=== PATIENT | female | born 1930 | race Caucasian/White ===

== ENCOUNTER 2019-04-19 13:39 | Inpatient (IN) | payer OTHER, MEDICARE ==
[~2019-04-19] VITALS: Ht 152.4 cm; Wt 73.5 kg
[2019-04-19] VITALS (7 sets, daily range): BP systolic 102–147; BP diastolic 56–86
[2019-04-19 14:16] LABS: BASOPHILS 0.7 % (0.0-2.0); EOSINOPHILS 1.5 % (0.0-3.0); HEMATOCRIT 41.4 % (37.0-47.0); HEMOGLOBIN 14.3 gm/dL (12.0-15.0); LYMPHOCYTES 21.1 % (24.0-44.0); MCH 35.3 pg (26.0-34.0); MCHC 34.5 g/dL (28.0-37.0); MCV 102.3 fL (80.0-100.0); MONOCYTES 8.9 % (1.0-8.0); PLATELET COUNT 190 thou/uL (150-400); POLYS 67.8 % (36.0-66.0); RBC 4.04 mil/uL (4.20-5.00); RDW 13.4 % (10.5-14.5); WBC 8.9 thou/uL (4.0-11.0)
[2019-04-19] MEDS ORDERED: METFORMIN HCL500 MG PO (14:17)
[2019-04-19 14:27] LABS: ANION GAP 14 mmol/L (7-16); BUN 13 mg/dL (7-18); CALCIUM 9.3 mg/dL (8.5-10.1); CHLORIDE 105 mmol/L (98-107); CO2 21 mmol/L (21-32); CREATININE 1.3 mg/dL (0.6-1.0); GLUCOSE 179 mg/dL (74-106); POTASSIUM 3.9 mmol/L (3.5-5.1); SODIUM 140 mmol/L (136-145)
[2019-04-19 14:37] LABS: MAGNESIUM 1.8 mg/dL (1.8-2.4); SGOT 21 U/L (15-37); SGPT 10 U/L (30-65); TOTAL BILIRUBIN 0.5 mg/dL (<0.1-1.0); TOTAL PROTEIN 7.1 g/dL (6.4-8.2); TROPONIN-I <0.06 ng/mL (<0.06)
[2019-04-19] MEDS ORDERED: ZOCOR20 MG PO (14:46)
[2019-04-19] MEDS ORDERED: AMARYL4 MG PO (14:49)
[2019-04-19] MEDS ORDERED: AMARYL2 MG PO (14:51)
[2019-04-19 17:37] LABS: CHOLESTEROL 225 mg/dL (<200); HDL CHOLESTEROL 33 mg/dL (>40); LDL CHOLESTEROL 144 mg/dL (<100); TC:HDL 6.8 Ratio (Not establshd); TRIGLYCERIDE 243 mg/dL (<150); VLDL 49 mg/dL (<40)
[2019-04-19 17:39] LABS: SERUM ASSESSMENT Clear
--- NOTE | 2019-04-19 18:40 | NUR ---
Recieved pt from ED. Placed on ICU monitor, oriented to room. VSS. Bilateral rales noted. On 2L nasal cannula. Heparin gtt started. Report given to oncoming shift.
[2019-04-20] VITALS (8 sets, daily range): BP systolic 90–114; BP diastolic 53–86
--- NOTE | 2019-04-20 03:00 | NUR ---
PT ARRIVED IN ICU FROM ER AT 1840 YESTERDAY EVENING. PT A&O, BUT FORGETFUL. PT DID BECOME INCREASINGLY ANXIOUS OVERNIGHT; PT IS NOT USE TO BEING IN THE HOSPITAL AND SAID SHE FELT "ANTSY". ORDER FOR HYDROXYZINE OBTAINED FROM [employer] THIS MORNING. PT HAS BEEN SLEEPING SINCE HYDROXYZINE WAS GIVEN. PT IS EASILY AROUSABLE AND HAS BEEN WOKEN INTERMITTENTLY, BUT IS CALM AND FALLS BACK ASLEEP SHORTLY AFTER. PT ON HEPARIN GTT. APTT NOT IN THERAPEUTIC RANGE YET, NEXT APTT TO BE DRAWN AT 0700 THIS MORNING. PT ON O2 PER NC, AND ONLY HAS SOA WHEN ANXIOUS. PT IS PROGRESSING. WILL CONTINUE TO MONITOR.
[2019-04-20 06:11] LABS: GLYCOHEMOGLOBIN (HGB A1C) 6.6 % (4.8-5.6)
[2019-04-20 07:06] LABS: CALCIUM 9.2 mg/dL (8.5-10.1); CREATININE 1.2 mg/dL (0.6-1.0); POTASSIUM 3.7 mmol/L (3.5-5.1)
[2019-04-20 07:08] LABS: HEMATOCRIT 40.3 % (37.0-47.0); HEMOGLOBIN 13.7 gm/dL (12.0-15.0); MCHC 33.9 g/dL (28.0-37.0); MCV 103.3 fL (80.0-100.0); RBC 3.9 mil/uL (4.20-5.00); RDW 13.5 % (10.5-14.5); WBC 10.1 thou/uL (4.0-11.0)
--- NOTE | 2019-04-20 07:40 | NUR ---
PATIENT LAB VALUES RETURNED. NO CHANGE ORDERED FOR HEPARIN GTT.
--- NOTE | 2019-04-20 08:34 | EKG ---
[address] [address] ELECTROCARDIOGRAM REPORT Name: SAGAR KATZ Room #: 245-P ADM IN M.R.#: [id number] Admission: 04/19/19 Attend Phys: Veronica De La Cruz MD Discharge: Date of : [birth year] Report #: [id number] THIS REPORT FOR: //name// [facility] ED Test Date: 2019-04-19 Test Time: 13:43:47 Pat Name: SAGAR KATZ Department: Room: [facility] Gender: F Construction Project Assistant: JOSÉ : [id number] Requested By: Mook Hoang Order Number: [id number] MD: Scar Osborne Measurements Intervals [place] Rate: 91 P: 43 CO: 149 QRS: -27 QRSD: 104 T: -63 QT: 382 QTc: 471 Interpretive Statements Sinus rhythm Inferior infarct, age indeterminate Anterolateral infarct, age indeterminate No previous ECG available for comparison Electronically Signed On 04-20-2019 8:34:13 CDT by Scar Osborne [email or web address] <ELECTRONICALLY SIGNED> By: Scar Osborne MD 04/20/19 0834 1343 134 Scar Osborne MD /BARBIE
--- NOTE | 2019-04-20 10:27 | 2DMMODE ---
[facility] [address] [place] [address] 2 D/M-MODE ECHOCARDIOGRAM Name: STERLINGSAGAR ALONZO Room #: 245-P ADM IN ..#: [id number] Admission: 04/19/19 Attend Phys: Veronica De La Cruz MD Discharge: Date of : [birth year] Date of Service: 04/20/19 1027 Report #: [id number] THIS REPORT FOR: //name// APPROVED REPORT Study performed: 04/20/2019 08:32:41 EXAM: Comprehensive 2D, Doppler, and color-flow Echocardiogram Patient Location: In-Patient Room #: [facility] Status: routine BSA: 1.76 HR: 68 bpm BP: 110/58 mmHg Rhythm: NSR Other Information Study Quality: Poor Indications New onset CHF. Hx; DM, HTN, DVT, PE 2D Dimensions RVDd: 34.81 mm IVSd: 12.21 (7-11mm) LVOT Diam: 18.98 (18-24mm) LVDd: 37.34 mm PWd: 11.62 (7-11mm) Ascending Ao: 37.24 (22-36mm) LVDs: 30.60 (25-40mm) Aortic Root: 32.56 mm Volumes Left Atrial Volume (Systole) Single Plane 4CH: 45.88 mL Single Plane 2CH: 18.84 mL LA ESV Index: 18.00 mL/m2 Aortic Valve AoV Peak Isauro.: 1.45 m/s AO Peak Gr.: 8.39 mmHg LVOT Max P.12 mmHg LVOT Max V: 1.02 m/s ELICIA Vmax: 1.98 cm2 Mitral Valve E/A Ratio: 0.7 MV Decel. Time: 399.49 ms MV E Max Isauro.: 0.59 m/s [facility] [address] [place] [address] 2 D/M-MODE ECHOCARDIOGRAM Name: STERLINGSAGARMerritt ALONZO Room #: [address] [place] [address] IN ..#: [id number] Admission: 04/19/19 Attend Phys: Veronica De La Cruz MD Discharge: Date of : [birth year] Date of Service: 04/20/19 1027 Report #: [id number] MV A Isauro.: 0.89 m/s MV PHT: 115.85 ms IVRT: 101.50 ms Pulmonary Valve PV Peak Isauro.: 1.05 m/s PV Peak Gr.: 4.39 mmHg Pulmonary Vein P Vein S: 0.48 m/s P Vein D: 0.29 m/s P Vein S/D Ratio: 1.66 Tricuspid Valve TR Peak Isauro.: 3.88 m/s RAP Estimate: 5.00 mmHg TR Peak Gr.: 60.18 mmHg PA Pressure: 65.00 mmHg Left Ventricle The left ventricle is normal size. Mild concentric left ventricular hypertrophy. The left ventricular systolic function is normal. The left ventricular ejection fraction is within the normal range. LVEF is 60%. Mild diastolic dysfunction is present (impaired relaxation pattern). Right Ventricle The right ventricle is normal size. Right ventricle is mildly hypokinetic. Atria The left atrium size is normal. The right atrium size is normal. Aortic Valve Aortic valve is thickened but has adequate excursion. Trace aortic regurgitation. There is no aortic valvular stenosis. Mitral Valve The mitral valve is normal in structure. Trace mitral regurgitation. No evidence of mitral valve stenosis. Tricuspid Valve The tricuspid valve is normal in structure. Moderate tricuspid regurgitation. Estimated PAP is 60mmHg. Pulmonic Valve The pulmonary valve is normal in structure. Trace pulmonic [facility] [address] [place] [address] 2 D/M-MODE ECHOCARDIOGRAM Name: SAGAR KATZ CLINTON Room #: 245-P [facility] IN ..#: [id number] Admission: 04/19/19 Attend Phys: Veronica De La Cruz MD Discharge: Date of : [birth year] Date of Service: 04/20/19 1027 Report #: [id number] regurgitation. Great Vessels The aortic root is normal in size. IVC is normal in size and collapses >50% with inspiration. Pericardium There is no pericardial effusion. <Conclusion> The left ventricle is normal size. LVEF is 60%. Aortic valve is thickened but has adequate excursion. Trace aortic regurgitation. The mitral valve is normal in structure. Trace mitral regurgitation. The tricuspid valve is normal in structure. Moderate tricuspid regurgitation. Estimated PAP is 60mmHg. The pulmonary valve is normal in structure. Trace pulmonic regurgitation. There is no pericardial effusion. <ELECTRONICALLY SIGNED> By: Felipe Hinds MD 04/20/19 1027 1027 1027 Felipe Hinds MD /INF
[2019-04-20 10:50] LABS: FOLIC ACID 40.4 ng/mL (8.6-58.9)
--- NOTE | 2019-04-20 17:01 | NUR ---
CM ASSESSMENT: CASE OPENED FOR DC PLANNING. CLINICAL INFO REVIEWED AND TALKED WITH PT'S DTR AD GRANDDAUGHTER. GRANDDAUGHTER IS ALEXIA LOU, SUPERVISOR [employer] [place] [address] [place] [address]. PT LIVES ALONE, INDEPENDENT WITH ADLS AND NO DME USE OR PREVIOUS HH OR REHAB STAYS. ALEXIA RELATES PT DOESN'T THINK SHE NEEDS TO BATHE REGULARLY AND HAS HOARDING TENDENCIES. STILL DRIVES, AND DOES HER OWN MEDS AND FINANCES. DISCUSSED MEDICAL AND FINANCIAL POA OR ATLEAST HAVING ANOTHER PERSON ON HER BANK ACCOUNT. FAMILY INTERESTED IN ACUTE REHAB AND 5N FOLLOWING IF PT WILL AGREE AND QUALIFIES. FAMILY AGREES PT NEEDS SOCIALIZATION AND PROVIDED RESOURCE FOR ADULT DAY CARE TO GRANDDAUGHTER. ADITS WITH DVT AND PE. PULM, CV AND GERIATRICS FOLLOWING. CM TO FOLLOW THRAPY EVALS AND ASSIST WITH DC PLANNING.
[2019-04-20 17:04] LABS: CALCIUM 9.5 mg/dL (8.5-10.1); CREATININE 1.4 mg/dL (0.6-1.0); POTASSIUM 3.7 mmol/L (3.5-5.1)
--- NOTE | 2019-04-20 19:02 | NUR ---
PATIENT TRANSFERRED TO CCU AT 18:25. MACKEY & LASIX DC'D PER ORDERS. PATIENT ABLE TO VOID 25ML POST DC OF MACKEY. PATIENT ABLE TO STAND AND SHUFFLE WITH 2 PERSON ASSIST FROM BED TO WHEELCHAIR, WHEELCHAIR TO COMMODE, AND THEN BACK TO BED. PATIENT CONTINUES TO DENY PAIN. REPORTS CRAMPING IN RLE ONETIME. FALL PRECAUTIONS IN PLACE, AGREES TO CALL FOR ASSIST. APTT IN RANGE, HEPARIN RATE DID NOT REQUIRE CHANGES THIS SHIFT. REPORT GIVEN TO MONA ROLAND AT 17:50.
[2019-04-21 03:20] VITALS: BP 114/62
--- NOTE | 2019-04-21 04:59 | NUR ---
PT RESTING IN BED. HAS NOT SLEPT SOUNDLY TONIGHT BUT MINI NAPS OFF AND ON. PT REMAINS ON HEPARIN GTT AND AWAITING AM RESULTS NOW. PT SR ON MONITOR. NO C/O PAIN THIS SHIFT. REMAINS ON 4L PER NC.
[2019-04-21 05:19] LABS: CALCIUM 9.4 mg/dL (8.5-10.1); CREATININE 1.3 mg/dL (0.6-1.0); POTASSIUM 3.6 mmol/L (3.5-5.1)
[2019-04-21 05:53] LABS: HEMATOCRIT 42.1 % (37.0-47.0); HEMOGLOBIN 14.5 gm/dL (12.0-15.0); MCHC 34.3 g/dL (28.0-37.0); MCV 102.1 fL (80.0-100.0); RBC 4.13 mil/uL (4.20-5.00); RDW 13.5 % (10.5-14.5); WBC 9.7 thou/uL (4.0-11.0)
[2019-04-21 07:10] VITALS: BP 101/57
[2019-04-21 11:20] VITALS: BP 104/51
--- NOTE | 2019-04-21 14:43 | HC ---
[facility] [place] [address] CONSULTATION Name: SAGAR KATZ Room #: 209-P ADM IN M.R.#: [id number] Admission: 04/19/19 Attend Phys: Veronica De La Cruz MD Discharge: Date of : [birth year] Report #: [id number] THIS REPORT FOR: //name// CC: Veronica Andujar MD PULMONARY CONSULTATION PRIMARY CARE PHYSICIAN: Dr. Bar Andujar. REFERRING PHYSICIAN: Dr. De La Cruz. REASON FOR REFERRAL: Pulmonary embolus. HISTORY OF PRESENT ILLNESS: The patient is an 89-year-old white female who presents to the ED with progressive dyspnea. She was found to have pulmonary embolus. A Pulmonary consultation was requested. The patient has been relatively healthy for most of her life. For the past few years, she has been rather sedentary. She sits down at prolonged periods of time, up to 2 hours at a time. She states that she does not exercise regularly. She admits that she is sedentary. Few days ago, while at [employer], she remembers being short of breath when she got up from her chair. Symptoms persisted and worsened over time where she presented to the Emergency Room. A CT chest angiogram and ultrasound shows DVT in the left popliteal vein along with bilateral moderate pulmonary embolus. Otherwise, the patient denies any recent long travel, car travel or airplane travel. She denies any recent surgery or trauma. She denies any family history of venothromboembolic disease. Several years ago, she underwent knee surgery without any difficulty postoperatively. PAST MEDICAL HISTORY: Includes diabetes mellitus type 2, hypertension, hypercholesterolemia. ALLERGIES: To CEPHALOSPORINS, reactions unspecified; CLINDAMYCIN, reaction unspecified; HALDOL; HYDROCODONE; HYDROMORPHONE; MORPHINE; OXYCODONE; PENICILLIN, reactions unspecified. FAMILY HISTORY: Unremarkable. [facility] [address] [place] [address] CONSULTATION Name: SAGAR KATZ Room #: 209-P [facility] IN [facility].#: [id number] Admission: 04/19/19 Attend Phys: Veronica De La Cruz MD Discharge: Date of : [birth year] Report #: [id number] SOCIAL HISTORY: She has family in town. I believe she is . She lives by herself. She has smoked for about 10 years, quit many years ago. She denies any alcohol use. REVIEW OF SYSTEMS: As mentioned above, other than being sedentary a 10-point system review negative. PHYSICAL EXAMINATION: GENERAL: She is awake, alert, in no apparent distress. VITAL SIGNS: Temperature is 98.6 degrees Fahrenheit, pulse is 80, respiratory rate is 20, blood pressure 111/61 mmHg, saturation 100% on supplemental O2. HEENT: Normocephalic, atraumatic. NECK: Supple, without lymphadenopathy or thyromegaly. CHEST: Good breath sounds bilaterally. No rales or wheezes. CARDIOVASCULAR: Normal S1, S2. There are no murmurs or gallop. There is no JVD. There is no carotid bruit. Pulses are 2+/4+ bilaterally. BREASTS: Exam is deferred. ABDOMEN: Soft, nontender, no organomegaly or masses felt. GENITOURINARY: Deferred. RECTAL: Deferred. EXTREMITIES: There is no edema, cyanosis or clubbing. LABORATORY DATA: CT chest angiogram, leg Doppler ultrasound reviewed. CT chest shows moderate bilateral, right and left, pulmonary artery thrombosis. No evidence of pulmonary infarction. Echocardiogram shows normal LV function, ejection fraction of 60%, pulmonary artery pressure measured approximately 60 mmHg. Otherwise, no other significant findings. BNP was 10,000. Creatinine is 1.3. CBC is normal. Hemoglobin is 14.3. IMPRESSION: 1. Acute bilateral pulmonary embolus, left deep venous thrombosis involving the popliteal vein in this 89-year-old white female. Her only risk factor, according to these, is felt to be provoked. The patient's only risk factor appears to be sedentary lifestyle over the last couple of years. She sits for prolonged periods up to 2 hours at a time. She was able to tolerate surgery several years ago, undergoing knee surgery. Echocardiogram shows elevated pulmonary artery pressures. Otherwise, no obvious evidence of RV strain. Troponin is normal. 2. Sedentary lifestyle, felt to be a risk factor for the above-mentioned venothromboembolism. 3. Hypertension. 4. Diabetes mellitus type 2. 5. Past knee surgery. RECOMMENDATION AND DISCUSSION: The patient will benefit from anticoagulation. Based on current recommendation for venothromboembolic disease, it is [address] [address] CONSULTATION Name: STERLINGSAGAR CLINTON Room #: 209-P ADM IN M.R.#: [id number] Admission: 04/19/19 Attend Phys: Veronica De La Cruz MD Discharge: Date of : [birth year] Report #: [id number] recommended that the patient be treated at least for 3 months and reassessed. If risk factor persists, the patient may benefit from ongoing anticoagulation. This will have to be weighed with the risk for bleeding complications given her advanced age. In terms of long-term anticoagulation, any direct oral anticoagulant is adequate including Coumadin depending on insurance coverage. As far as activity, the patient can start to slowly increase activity as tolerated depending on her symptoms. Findings were discussed in detail with the patient and her family, including her daughter who is a nurse at [facility]. Thank you for this consultation. <ELECTRONICALLY SIGNED> By: Dominik Woodson MD 04/21/19 1443 1241 0049 Dominik Woodson MD /nt
[2019-04-21 15:30] VITALS: BP 94/57
--- NOTE | 2019-04-21 17:10 | NUR ---
PT CARE ASSUMED APPROX 0700. PT ALERT AND ORIENTED X4. DENIES PAIN AND SOA AT REST. VSS. BS ELEVATED AT LUNCH. SSI USED TO MANAGE HYPERGLYCEMIA. HEPARIN GTT REMAINS TO POC. NO TITRATION REQUIRED THIS SHIFT PER PROTOCOL. PT UP WITH MIN ASSIST. PT SOA WITH MINIMAL EXERTION. ALL DRs ARE AWARE. PT FAMILY AT BEDSIDE MOST OF SHIFT. CLINICAL UPDATES GIVEN INTERMITTENTLY. PT AND FAMILY BOTH DENY QUESTIONS OR CONCERS REGARDING POC. YEAST NOTED IN GROIN. NYSTATIN APPLIED ORDERED. INTERDRY ALSO APPLIED TO MANAGE MOISTURE. PT HAS GOOD APPETITE. UNABLE TO TITRATE O2 DOWN THIS SHIFT. HUMIDIFIER TO O2 PER RESP THERAPY. UA TO BE COLLECTED. ANTICOAG THERAPY TO CHANGE TONIGHT. NO SIGNIFICANT CLINICAL CHANGES NOTED.
--- NOTE | 2019-04-21 17:11 | NUR ---
PER [facility], MEDICALLY ACCEPTED AND BED AVAILABLE THIS WEEKEND FOR PT. PT, DTR AND GRANDDAUGHTER AGREEABLE TO THIS PLAN.
[2019-04-21 21:44] VITALS: BP 109/71
[2019-04-21 23:42] LABS: URINE BILIRUBIN NEGATIVE (Negative); URINE BLOOD 1+ (Negative); URINE CLARITY CLEAR; URINE COLOR YELLOW; URINE GLUCOSE-RANDOM* NEGATIVE (Negative); URINE KETONES NEGATIVE (Negative); URINE LEUKOCYTES-REFLEX TRACE (Negative); URINE NITRITE-REFLEX NEGATIVE (Negative); URINE PROTEIN (DIPSTICK) NEGATIVE (Negative); URINE SPECIFIC GRAVITY <= 1.005 (1.005-1.035)
[2019-04-21 23:50] LABS: BACTERIA-REFLEX None Seen /HPF (None Seen); CASTS None Seen /LPF (None Seen); CRYSTALS None Seen /LPF (None Seen); MUCUS 0-3 Light strn/LPF (None Seen); SQUAMOUS 0-3 Few /LPF (0-3); URINE RBC 0-2 Rare /HPF (0-2); URINE WBC-REFLEX 0-5 Rare /HPF (0-5)
--- NOTE | 2019-04-22 04:56 | NUR ---
PT RESTING IN BED. SR ON MONITOR. PT REMAINS ON 4L NC. PT STILL CRACKLES HEARD THROUGHOUT. PT AMBULATED TO BATHROOM WITHOUT MUCH DIFFICULTY STANDBY WITH WALKER. PT OFF HEPARIN GTT TONIGHT AFTER STARTING PO ELIQUIS DOSE PER ORDERS. NO C/O PAIN DURING SHIFT.
[2019-04-22 05:48] LABS: CALCIUM 9.4 mg/dL (8.5-10.1); CREATININE 1.3 mg/dL (0.6-1.0); POTASSIUM 3.7 mmol/L (3.5-5.1)
[2019-04-22 06:15] VITALS: BP 123/68
[2019-04-22 08:15] VITALS: BP 110/55
[2019-04-22 12:20] VITALS: BP 141/69
[2019-04-22 16:20] VITALS: BP 101/62
--- NOTE | 2019-04-22 16:42 | NUR ---
PT CARE ASSUMED APPROX 0700. PT ALERT AND ORIENTED X4. DENIES PAIN. REPORTS SOA WITH EXERTION. PT DESATS WITH MOBILITY. RECOVERS QUICKLY WITH DEEP BREATHING ENCOURAGEMENT. VSS. BS SLIGHTLY ELEVATED. SSI USED TO MANAGE AND PT'S NORMAL ANTIHYPERGLYCEMIC ROUTINE TO BE RESUMED THIS EVENING. PT UP WITH WALKER AND MIN ASSIST. STEADY BUT EASILY EXERTED. UNABLE TO TITRATE O2 THIS SHIFT FOR SAID REASONS. PT PANUS AND PATTY GROIN REQUIRING SCHEDULED NYSTATIN CREAM. AREAS VERY MOIST AND THIS NURSE WILL RECOMMEND NYSTATIN POWDER BE ADDED TO POC. INTERDRY IN PLACE. HYDROCORTISONE ADDED TO POC FOR RASHED TO LOWER BACK THAT FAMILY REPORT ECZEMA. WILL MONITOR SKIN FOR IMPROVEMENT. AMBULATING IN HALLWAYS TOLERATETD. DISCHARGE TO REHAB HELD THIS DAY. IV LASIX SEEMS TO HAVE IMPROVED LUNG SOUNDS. CLINICALLY PT APPEARS THE SAME. UOP IMPROVED THIS SHIFT. FAMILY GIVEN CLINICAL UPDATES AND DENY QUESTIONS OR CONCERNS AT THIS TIME. NO DISTRESS NOTED.
[2019-04-22 20:02] VITALS: BP 106/57
[2019-04-23 05:34] LABS: CALCIUM 10.1 mg/dL (8.5-10.1); CREATININE 1.3 mg/dL (0.6-1.0); POTASSIUM 3.6 mmol/L (3.5-5.1)
[2019-04-23 05:41] VITALS: BP 104/57
--- NOTE | 2019-04-23 06:22 | NUR ---
PT IN BED SLEEP INTERRUPTED. PT SR ON MONITOR. 4L NC BUT STILL HAS DIFFICULT TIME RECOVERING AFTER ABMULATING TO BATHROOM WITH WALKER. PANUS REMAINS IRRITATED WITH YEAST AND PLACING NYSTATIN CREAM BUT PT DOES C/O DISCOMFORT IN THAT AREA.
[2019-04-23 07:55] VITALS: BP 133/69
[2019-04-23 11:15] VITALS: BP 91/57
[2019-04-23] MEDS ORDERED: ELIQUIS5 MG PO (12:26)
--- NOTE | 2019-04-23 13:10 | NUR ---
ACUTE REHAB ADMISSION WAS PLANNED FOR THIS DATE, BUT DELAYED BY PULMONARY PHYSICIAN WHO PLANS TO PERFORM MORE TESTING. PATIENT WILL NOT BE READY FOR DISCHARGE FROM ACUTE HOSPITAL UNTIL MIDWEEK. PATIENT WILL NEED TO BE REASSESSED TO SEE IF PATIENT WOULD STILL QUALIFY FOR ACUTE REHAB WHEN MEDICALLY STABLE. PATIENT IS PROGRESSING FUNCTIONALLY AND MY BE TOO HIGH FUNCTIONING TO BE A REHAB CANDIDATE AT THAT TIME.
[2019-04-23 15:25] VITALS: BP 129/61; BP 29/61
--- NOTE | 2019-04-23 16:14 | NUR ---
PT CARE ASSUMED APPROX 0700. PT ALERT AND ORIENTED X4 WITH FORGETFULNESS NOTED. DENIES PAIN. REPORTS SOA WITH EXERTION. REQUIRING 6LNC WHEN MOBILIZING AND DYSPNEA IS SIGNIFICANT. DR OROPEZA POSTPONED TRANSFER TO REHAB UNIT. FAMILY AWARE AND GIVEN ALL CLINICAL UPDATES. NO QUESTIONS AT THIS TIME. PT UP TO CHAIR MOST OF DAY. AMBULATING TO BATHROOM AND HALLWAYS WITH WALKER AND SBA. NO CHANGES TO POC. NO DISTRESS NOTED.
[2019-04-23 19:50] VITALS: BP 107/56
--- NOTE | 2019-04-24 01:17 | NUR ---
PT AMBULATING TO BATHROOM WITH WALKER AND STANDBY ASSIST AND IS TOLERATING FAIR. LAP TAKEN AROUND UNIT THIS SHIFT. DENIES PAIN. PLAN IS FOR TRANSFER TO 5N REHAB. PT HAVING TROUBLE SLEEPING THIS PM AND STATED SHE DOES NOT WANT TO BE HERE--JUST WANTS TO GO HOME. WILL PASS THIS ALONG. CALL LIGHT WITHIN REACH. WILL CONTINUE TO PROVIDE FREQUENT OBSERVATION.
[2019-04-24 04:25] LABS: CALCIUM 9.8 mg/dL (8.5-10.1); CREATININE 1.3 mg/dL (0.6-1.0); POTASSIUM 3.8 mmol/L (3.5-5.1)
[2019-04-24 04:35] LABS: HEMATOCRIT 37.8 % (37.0-47.0); HEMOGLOBIN 12.9 gm/dL (12.0-15.0); MCH 35.2 pg (26.0-34.0); MCHC 34.3 g/dL (28.0-37.0); MCV 102.9 fL (80.0-100.0); RBC 3.67 mil/uL (4.20-5.00); RDW 13.4 % (10.5-14.5); WBC 9.5 thou/uL (4.0-11.0)
[2019-04-24 05:01] VITALS: BP 129/74
[2019-04-24 08:29] VITALS: BP 127/56
[2019-04-24 12:09] VITALS: BP 114/52
[2019-04-24 16:52] VITALS: BP 107/54
--- NOTE | 2019-04-24 17:07 | NUR ---
PT CARE ASSUMED APPROX 0700. PT ALERT AND ORIENTED X4. DENIES PAIN AND SOA. VSS. COOPERATED WITH TURNS TWICE BUT SOON AFTER WENT BACK TO [facility]. BATH GIVEN BY TRAFFIC OPERATIONS MANAGER. PT TOLERATING POC. DENIES QUESTIONS OR CONCERNS. REPORTS CHRONIC GEN PAIN 7-04/01. ALSO REPORTS ADEQUATE PAIN MANAGEMENT. NO DISTRESS NOTED.
--- NOTE | 2019-04-24 17:09 | NUR ---
PT CARE ASSUMED APPROX 0700. PT ALERT AND ORIENTED X4. DENIES PAIN AND SOA. VSS. O2 SAT CONTINUES TO DROP WITH ACTIVITY. PT RECOVERS WELL AFTERWARDS AND HAS TOLERATED O2 WEANING. UP WITH WALKER AND STEADY GAIT. PT IS SBA. PT IN CHAIR MOST OF SHIFT. TOLERATING POC. NO CHANGES TO POC. FAMILY AT BEDSIDE THIS SHIFT AND DENIES QUESTIONS OR CONCERNS REGARDING POC. NO DISTRESS NOTED.
[2019-04-24 20:11] VITALS: BP 140/82
--- NOTE | 2019-04-25 04:34 | NUR ---
PT HAS BEEN UNABLE TO REST WELL TONIGHT. HAS BEEN ANXIOUS AND SAYS SHE JUST FEELS "ANTSY" AT TIMES. PT REMAINS ON 2L NC. DOES NOT C/O SOB DURING AMBULATION TO BATHROOM WITH WALKER AND BACK. PT AWAITING D/C TO REHAB TO REGAIN STRENGTH LOST. PT TO HAVE ECHO STILL. FREQUENT TRIPS TO THE BATHROOM, I BELIEVE 7-8 ALREADY TONIGHT.
[2019-04-25 04:47] VITALS: BP 111/49
[2019-04-25 07:45] VITALS: BP 131/71
[2019-04-25 12:05] VITALS: BP 119/85
--- NOTE | 2019-04-25 12:38 | 2DMMODE ---
[facility] [address] [place] [address] 2 D/M-MODE ECHOCARDIOGRAM Name: STERLINGSAGAR CLINTON Room #: 209-P ADM IN .R.#: [id number] Admission: 04/19/19 Attend Phys: Veronica De La Cruz MD Discharge: Date of : [birth year] Date of Service: 04/25/19 1238 Report #: [id number] THIS REPORT FOR: //name// APPROVED REPORT Study performed: 04/25/2019 10:10:05 EXAM: Limited 2D, Doppler, and color-flow Echocardiogram Patient Location: Bedside Room #: 209 Status: routine BSA: 1.70 HR: 66 bpm BP: 131/71 mmHg Rhythm: NSR Other Information Study Quality: Adequate Risk Factors: Cardiac Risk Factors: DM, Hyperlipidemia Indications Congestive Heart Failure Pulmonary Embolism Persistent Dyspnea 2D Dimensions IVSd: 10.66 (7-11mm) LVDd: 39.34 mm PWd: 11.21 (7-11mm) LVDs: 29.24 (25-40mm) LV Single Plane 4CH: 58.68 % Aortic Valve AoV Peak Isauro.: 1.45 m/s AO Peak Gr.: 8.36 mmHg Tricuspid Valve TR Peak Isauro.: 3.25 m/s RAP Estimate: 7.00 mmHg TR Peak Gr.: 42.16 mmHg PA Pressure: 49.00 mmHg Left Ventricle The left ventricle is normal size. Borderline concentric left ventricular hypertrophy. The left ventricular systolic function is [facility] [address] [place] [address] 2 D/M-MODE ECHOCARDIOGRAM Name: SAGAR KATZ Room #: 209-P ADM IN M.R.#: [id number] Admission: 04/19/19 Attend Phys: Veronica De La Cruz MD Discharge: Date of : [birth year] Date of Service: 04/25/19 1238 Report #: [id number] normal. The left ventricular ejection fraction is within the normal range. LVEF is 55-60%. Right Ventricle The right ventricle is normal size. The right ventricular systolic function is normal. Atria The left atrium size is normal. The right atrium size is normal. Aortic Valve Aortic valve is thickened but has adequate excursion. Trace aortic regurgitation. Mitral Valve The mitral valve is normal in structure. There is no mitral valve regurgitation noted. Tricuspid Valve The tricuspid valve is normal in structure. Mild to moderate tricuspid regurgitation. Pulmonary artery pressure is 49 mmHg. Pulmonic Valve The pulmonary valve is normal in structure. There is no pulmonic valvular regurgitation. Great Vessels The aortic root is normal in size. IVC is normal in size and collapses >50% with inspiration. Pericardium There is no pericardial effusion. <Conclusion> The left ventricle is normal size. LVEF is 55-60%. Aortic valve is thickened but has adequate excursion. Trace aortic regurgitation. The mitral valve is normal in structure. There is no mitral valve regurgitation noted. The tricuspid valve is normal in structure. Mild to moderate tricuspid regurgitation. Pulmonary artery pressure is 49 mmHg. [facility] [address] [place] [address] 2 D/M-MODE ECHOCARDIOGRAM Name: STERLINGSAGARMerritt ALONZO Room #: 209-P ADM IN M.R.#: [id number] Admission: 04/19/19 Attend Phys: Veronica De La Cruz MD Discharge: Date of : [birth year] Date of Service: 04/25/19 1238 Report #: [id number] The pulmonary valve is normal in structure. There is no pericardial effusion. <ELECTRONICALLY SIGNED> By: Felipe Hinds MD 04/25/19 1238 1238 1238 Felipe Hinds MD /INF
--- NOTE | 2019-04-25 12:52 | NUR ---
FAXED REFERRAL TO [facility] SPOKE WITH REBECCA IN ADM SHE RECEIVED REFERRAL AND WILL REVIEW. DCP TO FOLLOW.
--- NOTE | 2019-04-25 15:49 | NUR ---
patient to dc to [facility] today is accepted to acute rehab. CM avail for completion of AD.
[2019-04-25 16:22] VITALS: BP 130/66
--- NOTE | 2019-04-25 16:28 | NUR ---
PT CARE ASSUMED APPROX 0700. PT ALERT AND ORIENTED X4. DENIES PAIN AND SOA. VSS. BS WNL. PT UP TO CHAIR MOST OF SHIFT. TOLERATING POC. AMBULATED WITH P/T. TOLERATED WELL. CLINICAL UPDATES GIVEN TO FAMILY. ALL DENY QUESTIONS AND CONCERNS. PLAN IS TO TRANSFER PT TO REHAB UNIT. ABD CT RESULTS ARE PENDING AND THEN DR CASTRO TO PUT IN ORDERS FOR TRANSFER TO REHAB. WILL F/U.
[2019-04-25] MEDS ORDERED: ATORVASTATIN CA10 MG PO (17:26)
[2019-04-25] MEDS ORDERED: TRAZODONE HCL50 MG PO (17:26)
[2019-04-25] MEDS ORDERED: NOVOLOG100 UNIT/1 SUBQ (17:27)
[2019-04-25] MEDS ORDERED: AMARYL2 MG PO (17:28)
[2019-04-25] MEDS ORDERED: B12INJ IM (17:29)
[2019-04-25] MEDS ORDERED: MELATONIN5 M1 PO (17:29)
[2019-04-25] MEDS ORDERED: FOLIC ACID1 MG PO (17:30)
[2019-04-25] MEDS ORDERED: GLUCAGEN1 MG/1 ML IM (17:30)
[2019-04-25] MEDS ORDERED: HYDROCORTISONE30 G9 TOP (17:31)
[2019-04-25] MEDS ORDERED: NYAMYC15 GM TOP (17:31)
--- NOTE | 2019-04-25 17:52 | NUR ---
ORDERS TO TRANSFER TO REHAB PUT IN AFTER ABD CT RESULTS REVIEWED BY DR CASTRO. WILL TRANSFER PT TO REHAB UNIT TIMELY. FAMILY AT BEDSIDE AND AWARE. REPORT CALLED TO RECEIVING NURSE. NURSE DENIES QUESTIONS OR CONCERNS REGARDING PT.
== END 2019-04-25 18:15 | DRG 175 ==
LOC: ER 13:39 → 2N 17:14 → EROBS 17:14 → ICU 17:14 → 2N 04-20 17:55
PROVIDERS: Emergency Medicine; Hospitalist; Internal Medicine Pulmonary Disease; Nurse Practitioner Family; ADMIT Internal Medicine
DX: I26.99 Other pulmonary embolism without acute cor pulmonale (principal); J96.01 Acute respiratory failure with hypoxia; I82.432 Acute embolism and thrombosis of left popliteal vein; I50.30 Unspecified diastolic (congestive) heart failure; N17.9 Acute kidney failure, unspecified; I13.0 Hypertensive heart and chronic kidney disease with heart failure and stage 1 through stage 4 chronic kidney disease, or unspecified chronic kidney disease; E78.5 Hyperlipidemia, unspecified; E78.00 Pure hypercholesterolemia, unspecified; M25.462 Effusion, left knee; L30.4 Erythema intertrigo; Z60.2 Problems related to living alone; Z96.653 Presence of artificial knee joint, bilateral; I08.8 Other rheumatic multiple valve diseases; F03.90 Unspecified dementia, unspecified severity, without behavioral disturbance, psychotic disturbance, mood disturbance, and anxiety; D53.9 Nutritional anemia, unspecified; I27.20 Pulmonary hypertension, unspecified; M19.90 Unspecified osteoarthritis, unspecified site; E53.8 Deficiency of other specified B group vitamins; K21.9 Gastro-esophageal reflux disease without esophagitis; N18.3 Chronic kidney disease, stage 3 (moderate); K46.9 Unspecified abdominal hernia without obstruction or gangrene; K43.9 Ventral hernia without obstruction or gangrene; E11.22 Type 2 diabetes mellitus with diabetic chronic kidney disease; Z79.84 Long term (current) use of oral hypoglycemic drugs; Z79.899 Other long term (current) drug therapy; Z88.8 Allergy status to other drugs, medicaments and biological substances; Z88.6 Allergy status to analgesic agent; Z88.0 Allergy status to penicillin; Z87.891 Personal history of nicotine dependence; Z82.3 Family history of stroke; Z83.79 Family history of other diseases of the digestive system
CPT/HCPCS: 10078; 10081; 10203

== ENCOUNTER 2019-04-22 09:41 | Inpatient (IN) | payer OTHER, MEDICARE ==
[~2019-04-22] VITALS: Ht 149.9 cm; Wt 77.1 kg
[~2019-04-22 09:41] MED LIST: AMARYL2 MG PO; AMARYL4 MG PO; METFORMIN HCL500 MG PO; ZOCOR20 MG PO
[2019-04-23] MEDS ORDERED: ELIQUIS5 MG PO (12:26)
[2019-04-25] MEDS ORDERED: ATORVASTATIN CA10 MG PO (17:26)
[2019-04-25] MEDS ORDERED: TRAZODONE HCL50 MG PO (17:26)
[2019-04-25] MEDS ORDERED: NOVOLOG100 UNIT/1 SUBQ (17:27)
[2019-04-25] MEDS ORDERED: AMARYL2 MG PO (17:28)
[2019-04-25] MEDS ORDERED: B12INJ IM (17:29)
[2019-04-25] MEDS ORDERED: MELATONIN5 M1 PO (17:29)
[2019-04-25] MEDS ORDERED: FOLIC ACID1 MG PO (17:30)
[2019-04-25] MEDS ORDERED: GLUCAGEN1 MG/1 ML IM (17:30)
[2019-04-25] MEDS ORDERED: NYAMYC15 GM TOP (17:31)
[2019-04-25] MEDS ORDERED: HYDROCORTISONE30 G9 TOP (17:31)
[2019-04-25 19:55] VITALS: BP 115/53
--- NOTE | 2019-04-26 02:31 | NUR ---
pt arrived to unit approx 1800. pts daughter with pt in room at change of shift. 02 at 2L per n/c. oriented pt to room, call light, etc. pt alert and oriented x4, somewhat forgetful, pleasant and cooperative. pt took hs meds with water tolerating well. pt up to the bathroom with 1 assist and walker several times in night. pt denies pain. cream and powder applied to back and abd folds as ordered. pt appears to be sleeping soundly with hourly rounding checks. bed alarm on and call light in reach. will continue to monitor.
[2019-04-26 06:57] LABS: HEMATOCRIT 38.1 % (37.0-47.0); MCH 34.8 pg (26.0-34.0); MCHC 34.1 g/dL (28.0-37.0); MCV 101.9 fL (80.0-100.0); RBC 3.74 mil/uL (4.20-5.00); RDW 13.4 % (10.5-14.5); WBC 8.8 thou/uL (4.0-11.0)
[2019-04-26 07:06] LABS: CALCIUM 10.1 mg/dL (8.5-10.1); CREATININE 1.2 mg/dL (0.6-1.0)
[2019-04-26 07:50] VITALS: BP 136/70
--- NOTE | 2019-04-26 10:32 | NUR ---
ASSUMED CARE AT 0700. PATIENT IS ALERT AND ORIENTED, BUT FORGETFUL. 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 LUNGS ARE CLEAR AND DEMINISHED. 02 AT 1.5 L. HER ABD IS SOFT WITH BSX4. UP TO THE BATHROOM WITH GAIT BELT AND WALKER. NO EDEMA NOTED IN HER LOWER EXTREMITIES. RASH TO HER BACK IS IMPROVING WITH HYDROCORTIZONE CREAM. PATIENT HAS YEAST UNDER HER PANAS. INTERDRY AND NYSTATIN POWDER APPLIED. PATIENT IS TO RECIEVE NO IM'S. FALL AND SAFETY PROTOCOLS IN PLACE. DENIES ANY PAIN AT THIS TIME. WILL CONTINUE TO MONITER.
--- NOTE | 2019-04-26 12:59 | NUR ---
Nutrition: Consult received stating malnutrition, RD will defer dx. Pt admit with bilateral PE, hypoxia, general debility to rehab unit. PMH: DM, HTN, HLD, ? dementia. Stable weights reported. BMI 34, obesity class 1. Reports appetite is fine, 50-75% of meals is documented. A1C 6.6 on carb controlled diet. Chol-225, Triglycerides 243, LDL 144. On statin. B12-105, on supplement. pt voices no food preferences and understands option to order meals as desired. May consider adding heart healthy restriction to diet order. Low risk.
[2019-04-26 20:48] VITALS: BP 115/63
--- NOTE | 2019-04-27 03:00 | NUR ---
ASSESSMENT: PT REMAIN ALERT ORIENT TIMES THREE. UP TO BR WWITH GB AND WALKER. PT USES THE BR FREQUENTLY, NO BM'S. DENIES SOB. DID C/O WANTING SOMETHING TO GO TO SLEEP. TRAZADONE GIVEN WITH PARTIAL RESULTS. VSS, AFEBRILE. REMAIN SAFE WITH FALL PRECAUTIONS ADHERED TO. CAN BE IMPULSIVE AT TIMES. SLOW PROGRESS TOWARDS DC GOALS. WILL CONTINUE TO MONITOR.
[2019-04-27 07:15] VITALS: BP 133/64
--- NOTE | 2019-04-27 16:18 | NUR ---
ASSUMED CARES AT 0700. PT ORIENTED TO PERSON AND PLACE, FORGETFUL. DENIES PAIN. VITALS REMAIN STABLE. PANUS AND UNDER BREASTS CLEANED AND DRIED, NYSTATIN POWDER AND INTERDRY APPLIED. RASH ON BACK APPROXIMATED WELL, HYDROCORTISONE CREAM APPLIED DIRECTED. PT UP WITH 1 MIN ASSIST, GB AND WALKER AND TOLERATED WELL. PARTCIPATED IN ALL THERAPY TODAY. Q1H VISUAL CHECKS. CALL LIGHT WITHIN REACH. FALL PRECAUTIONS IN PLACE
[2019-04-27 20:20] VITALS: BP 118/63
--- NOTE | 2019-04-28 00:20 | NUR ---
PT ASSESSMENT DONE AND VSS. MEDS GIVEN ORDERED AND WELL TOLERATED. FALL PRECAUTIONS IN PLACE. WILL CONTINUE TO MONITOR.
[2019-04-28 07:30] VITALS: BP 121/67
--- NOTE | 2019-04-28 09:50 | NUR ---
chart review, lives alone, independent prior to hospital. was managing own medication, no dme and was still driving. intro to cm, dcp, transition of care, home health and team meeting. pt granddaughter employee at [employer] in nursing department. cm provided granddaughter with senior blue book, and [place] [facility] list in area. family looking into medically dpoa and health care directive. pt was working with physical therapy, noted on o2 with act, per therapy they been able to luis down to 2-1L per nc and stat about 90's. will cont following as needed for dc needs.
[2019-04-28 19:52] VITALS: BP 103/53
--- NOTE | 2019-04-28 19:58 | NUR ---
ASSUMED CARES AT 0700. PT ORIENTED TO PERSON AND PLACE, FORGETFUL. DENIES PAIN. VITALS REMAIN STABLE. GROIN, PANUS AND UNDERBREAST CLEANED, POWDER AND INTERDRY APPLIED. RASH ON LOWER BACK CLEANED AND HYDROCORTISONE CREAM APPLIED PER ORDER. PT UP WITH MIN ASSIST, GB AND TOLERATED WELL. Q1H VISUAL CHECKS. CALL LIGHT WITHIN REACH. FALL PRECAUTION IN PLACE
--- NOTE | 2019-04-29 02:00 | NUR ---
PT ALERT AND ORIENTED X 4, FORGETFUL. AMB TO BR WITH WALKER AND ASSIST X 1 WITHOUT DIFFICULTY. UP TO BR FREQUENTLY DURING THE NIGHT. 02 ON AT 1L PER NC. PT DENIES PAIN OR DISCOMFORT. BED ALARM ON FOR SAFETY. PT CHECKED ON HOURLY ROUNDS.
[2019-04-29 07:59] VITALS: BP 126/54
--- NOTE | 2019-04-29 10:49 | NUR ---
ASSUMED CARE AT 0700. PATIENT IS ALERT AND ORIENTED, BUT FORGETFUL. PATIENT MICHAELS'S. SHEET METAL ENGINEER ARE EQUAL. LUNGS ARE CLEAR AND DEMINISHED. ABD IS SOFT WITH BSX4. PATIENT IS UP TO THE BATHROOM TO VOID BRENDA COLORED URINE. PATIENT IS UP IN CHAIR FOR MEALS. FALL AND SAFETY PROTOCOLS IN PLACE. DENIES ANY PAIN AT THIS TIME. CONTINUES TO PROGRESS TOWARDS D/C GOALS. WILL CONTINUE TO MONITER. PATIENT IS UP WITH ASSIST OF 1 STAFF , GAIT BELT AND WALKER.
--- NOTE | 2019-04-29 11:04 | NUR ---
PATIENT NOTED TO HAVE RASH ON BACK AND REDNESS UNDER HER PANAS AREA OF HER ABD. HYDROCORTIZONE CREAM APPLIED TO HER BACK AND NYSTATIN TO HER PANAS AREA. WILL CONTINUE TO MONITER.
[2019-04-29 19:30] VITALS: BP 125/55
--- NOTE | 2019-04-30 00:13 | NUR ---
PT ALERT AND ORIENTED X 4, FORGETFUL. AMB TO BR WITH WALKER AND ASSIST X 1 WITHOUT DIFFICULTY. 02 ON AT 1L PER NC CONT. PT DENIES PAIN OR DISCOMFORT. BED ALARM ON FOR SAFETY. PT CHECKED ON HOURLY ROUNDS.
[2019-04-30 10:35] VITALS: BP 115/64
[2019-04-30 19:28] VITALS: BP 121/66
--- NOTE | 2019-05-01 02:52 | NUR ---
assumed care at approx 1900 evening 04/30. pt lying in bed with head of bed elevated at change of shift. pt appropriate and cooperative. pt took hs meds with water tolerating well. pt up to bathroom to void several times this night. 02 at 2l per n/c. pt back to bed now sleeping off and on. bed alarm on and call light in reach. will continue to monitor.
[2019-05-01 07:15] LABS: ABSOLUTE NEUTROPHILS 4.8 thou/uL (1.4-8.2); BASOPHILS 1.1 % (0.0-2.0); EOSINOPHILS 3.4 % (0.0-3.0); HEMATOCRIT 36.9 % (37.0-47.0); HEMOGLOBIN 12.5 gm/dL (12.0-15.0); LYMPHOCYTES 22.4 % (24.0-44.0); MCH 34.8 pg (26.0-34.0); MCHC 33.9 g/dL (28.0-37.0); MCV 102.7 fL (80.0-100.0); PLATELET COUNT 229 thou/uL (150-400); POLYS 62.1 % (36.0-66.0); RBC 3.59 mil/uL (4.20-5.00); RDW 12.9 % (10.5-14.5); WBC 7.7 thou/uL (4.0-11.0)
[2019-05-01 07:28] LABS: CALCIUM 9.6 mg/dL (8.5-10.1); CREATININE 1.1 mg/dL (0.6-1.0); MAGNESIUM 1.9 mg/dL (1.8-2.4); POTASSIUM 3.8 mmol/L (3.5-5.1)
[2019-05-01 07:30] VITALS: BP 126/66
[2019-05-01 19:40] VITALS: BP 159/71
--- NOTE | 2019-05-01 20:00 | NUR ---
Assumed care approx. 0700 this AM. Patient's daughter spoken with on the phone this afternoon; concerns and questions addressed. Patient weaned off of oxygen today with O2 Sats in the mid 90's even with activity. VSS. No distress. No complaints of pain. Progression made toward therapy and plan of care goals.
--- NOTE | 2019-05-01 23:31 | NUR ---
PT ASSESSMENTS DONE AND VSS. MEDS GIVEN ORDERED AND WELL TOLERATED. FALL PRECAUTIONS IN PLACE. PT SLEEPING. WILL CONTINUE TO MONITOR.
--- NOTE | 2019-05-02 07:40 | NUR ---
PT WORKING WITH PHYSICAL THERAPY AT THIS TIME. PT UP VIA WALKER AND GAIT BELT. PT DENIES ANY PAIN. PT HAS OXYGEN ON 1L NC. PT HAS CRACKLES TO LLL. PT HARD OF HEARING, PT DENIES ANY INCONT. ISSUES.
[2019-05-02 07:51] VITALS: BP 121/63
--- NOTE | 2019-05-02 13:08 | NUR ---
team meeting, recommendation: need to luis oxygen, will need to family support, frequent checks if doesnt need home o2, if needs home o2 will need 24h supervision if pt requires home o2. already supplied family with dpoa paper work if choose to fill it out call [employer] [facility] for notary. no driving, will need pills and bills management support at home. possible pt is able to stay with daughter at dcp per neuropysch. dc 13th with HH (pt, ot, st, and nursing). need o2 stat and ex 48h prior to dc. family has senior blue book.
--- NOTE | 2019-05-02 14:00 | NUR ---
PT OXYGEN SAT 96% ON ROOM AIR. PT WANTING TO KEEP OXYGEN ON. ENSURED PT THAT SHE DOESN'T NEED THE OXYGEN ON AT THIS TIME.
[2019-05-02 19:34] VITALS: BP 142/77
--- NOTE | 2019-05-03 00:44 | NUR ---
PT ALERT AND ORIENTED X 4, FORGETFUL. AMB TO BR WITH WALKER AND ASSIST X 1 WITHOUT DIFFICULTY. REDNESS TO BILATERAL GROIN. NYSTATIN POWDER APPLIED. RASH REMAINS ON BACK. HYDROCORTISONE CREAM APPLIED. PT DENIES PAIN OR DISCOMFORT. BED ALARM ON FOR SAFETY. PT CHECKED ON HOURLY ROUNDS.
--- NOTE | 2019-05-03 08:30 | NUR ---
cm received voice message from daughter amadou who stated " the dcp is going to have to change, need to work and might be going out of state. i cant stay with her and she cant stay here"/amadou. cm spoke with amadou let her know would talk with team and call her back, cm asked if cindi know she stated was discussed last night and ok to talk with her about going for some more rehab, she cant afford pd or retirement"/amadou.
[2019-05-03 09:43] VITALS: BP 120/63
--- NOTE | 2019-05-03 12:56 | NUR ---
Nutrition: pt seen per followup. Current weight up 8# from admit. Intake 75-100% of meals on carb controlled diet. BG 120-199. Hyperlipidemia, on statin. Continues on B12 supplementation and folic acid. Enjoys the meals she is receiving. Voices no nutritional needs. Low nutrition risk.
[2019-05-03 19:20] VITALS: BP 137/69
--- NOTE | 2019-05-04 00:47 | NUR ---
PT ALERT AND ORIENTED X 4, FORGETFUL. AMB TO BR WITH WALKER AND ASSIST X 1 WITHOUT DIFFICULTY. HYDROCORTISONE CREAM TO RASH ON BACK. NYSTATIN POWDER TO BILATERAL GROIN. PT DENIES PAIN OR DISCOMFORT. BED ALARM ON FOR SAFETY. PT CHECKED ON HOURLY ROUNDS.
[2019-05-04 08:40] VITALS: BP 148/76
[2019-05-04] MEDS ORDERED: AMARYL2 MG PO (10:14)
[2019-05-04] MEDS ORDERED: ATORVASTATIN CA10 MG PO (10:14)
[2019-05-04] MEDS ORDERED: DONEPEZIL HCL 55 MG PO (10:14)
[2019-05-04] MEDS ORDERED: FOLIC ACID1 MG PO (10:14)
[2019-05-04] MEDS ORDERED: ELIQUIS5 MG PO (10:17)
[2019-05-04] MEDS ORDERED: VITAMIN B122500 MC1 PO (10:17)
[2019-05-04] MEDS ORDERED: COLACE100 MG PO (10:18)
--- NOTE | 2019-05-04 10:45 | NUR ---
cm visited with pt at bedside, she was on ra this visit at rest. cm provided health care dir form and dpoa packet, re-education not to sign until witness by susi, also went over hh list choice. per pt referral to be sent to [facility] ( pt, ot, st , nurse and sw). will cont following as needed for dc needs.
--- NOTE | 2019-05-04 13:53 | NUR ---
DISCHARGE PLANNING. ANTICIPATED DISCHARGE TO HOME WITH HOME HEALTH SERVICES. PATIENT HH REFERRAL FAXED TO [facility], VERIFIED REFERRAL RECEIVED. [facility] TO REVIEW REFERRAL AND NOTIFY CM. FOLLOWING.
--- NOTE | 2019-05-04 16:34 | H ---
[facility] [place] [address] HISTORY AND PHYSICAL Name: SAGAR KATZ Room #: 509-P ADM IN M.R.#: [id number] Admission: 04/25/19 ������������������ Attend Phys: Edu Cardoza MD Discharge: ������������������ Date of : [birth year] Report #: [id number] THIS REPORT FOR: //name// CC: Edu Andujar DATE OF SERVICE: 04/25/2019 HISTORY AND PHYSICAL/POST-ADMISSION PHYSICIAN EVALUATION HISTORY OF PRESENT ILLNESS: The patient is an 89-year-old white female who was originally admitted to [facility] on 04/19/2019 with increased shortness of breath, was diagnosed with bilateral pulmonary emboli and a left lower extremity DVT, thought to be secondary to secondary lifestyle. The patient was seen by Cardiology and Pulmonary Medicine. She was placed on a heparin drip with conversion to oral treatment. She was noted to have significant decreased functional mobility and ADLs, has a history of pulmonary hypertension. She was treated for acute hypoxic respiratory failure needing nasal prong O2 and noted to have exercise-induced hypoxia. It was felt that her oxygen needs should improve as the thrombus burden reduces over time. She is being treated with pulmonary hypertension. She also has acute renal insufficiency as well as diabetes mellitus. She had an elevated BNP, due to the pulmonary embolism. She has now been admitted for acute in-hospital inpatient rehabilitation. PAST MEDICAL HISTORY: Includes diabetes mellitus, hypertension, and hyperlipidemia. She has had prior bilateral total knee replacements for past surgical history. There is a question of some dementia and there is some documentation of it as well, although she was living in the community. HABITS: No history of tobacco or alcohol abuse. SOCIAL HISTORY: Lives alone, ranch style house, 2 stairs to enter and then all living on one level. She was still driving. She is right-handed. She was independent with ADLs, although the daughter had noted that she did not do a good job bathing. She was not keeping up with the housework and the home per the daughter. No history of any falls. She did not utilize any gait aids. She denied any specific memory problems. ALLERGIES: Please see the listing as noted as there are a number of allergies. REVIEW OF SYSTEMS: No fever or chills. No shortness of breath or cough. No chest pain, syncope, palpitations. She does get some increased shortness of breath with increased activity. She was not on any nasal prong O2 premorbidly. She denies any abdominal pain, constipation. No dysuria. She has some generalized weakness without specific muscular pain. No numbness, dizziness, [facility] [address] [place] [address] HISTORY AND PHYSICAL Name: SAGAR KATZ Room #: 509-P [facility] IN .R.#: [id number] Admission: 04/25/19 ������������������ Attend Phys: Edu Cardoza MD Discharge: ������������������ Date of : [birth year] Report #: [id number] headache. Multiple body systems were reviewed as above. PHYSICAL EXAMINATION: GENERAL: An 89-year-old white female, obese, no obvious distress. VITAL SIGNS: Last recorded temperature 98.1, pulse 72, respirations 20, blood pressure 115/53. The patient is alert. HEENT: Appeared to be benign. NEUROLOGIC: Cranial nerves are grossly intact. Facies are symmetric. There is some latency to her responses. Temperature 98.1, pulse 72, respirations 20, blood pressure 115/53. CHEST: Some diffuse breath sounds throughout. She is on nasal prong O2. CARDIOVASCULAR: Regular rate and rhythm. ABDOMEN: Bowel sounds positive, nontender. She is obese. GENITOURINARY AND RECTAL: Deferred. EXTREMITIES: Functional range of motion of both upper extremities with strength grade 4- to 3+/5. DTRs are trace to 1. Lower extremities, no focal calf swelling, functional range of motion with strength grade 3+/5. Prior to her rehabilitation admission, she has been min assist with transfers and min assist short distance ambulation with a front-wheeled walker. ASSESSMENT: An 89-year-old white female with the following problem list: 1. Pulmonary rehabilitation. 2. Medical complexity with generalized debilitation. 3. Bilateral pulmonary embolism with hypoxia, on anticoagulation. 4. Hypoxic respiratory failure. 5. Bilateral pulmonary embolism. 6. Left lower extremity deep venous thrombosis. 7. Pulmonary hypertension. 8. Elevated BNP. 9. Renal insufficiency. 10. Diabetes mellitus type 2. 11. Prior history of dementia is noted. 12. Hypertension. PLAN: The patient is admitted for acute in-hospital inpatient rehabilitation. From a postadmission physician evaluation perspective, there are no relevant changes since the preadmission screening. Please see the above review of prior and current medical and functional conditions and comorbidities. Please see the patient's previous and current functional status. As far as risk of complications, the patient has multiple medical comorbidities as noted above. The initial plan of care involves the interdisciplinary acute inpatient rehabilitation program. Measurable functional goals for the patient to become modified independent with transfers, mobility, ADLs as well as cognition, so she can return back to the home setting. Speech therapy will be evaluating her to further assess her cognition as well as neuropsychology. I think we could give some helpful information back to the family. Initial plan of care involves the [address] [address] HISTORY AND PHYSICAL Name: SAGAR KATZ Room #: 509-P ADM IN [facility]#: [id number] Admission: 04/25/19 ������������������ Attend Phys: Edu Cardoza MD Discharge: ������������������ Date of : [birth year] Report #: [id number] interdisciplinary acute inpatient rehabilitation program to maximize her functional independence. Prognosis is reasonably good with estimated length of stay probably 7-14 days. She meets diagnostic criteria for an acute in-hospital inpatient rehabilitation stay. She meets the medical necessity criteria. We will have the multiple commercial solar sales consultant physicians continue to follow. She does have the tolerance for therapies and has appropriate discharge goals back to the home setting. Again from a postadmission physician evaluation perspective, there are no relevant changes since the preadmission screening. See the above review of prior and current medical and functional conditions and comorbidities. ��������������������������������������������� <ELECTRONICALLY SIGNED> ���������������������������������������� By: Edu Cardoza MD ��������������������������������������������� 05/04/19 1634 [id number] Edu Cardoza MD /nt
--- NOTE | 2019-05-04 16:41 | PLAN ---
[facility] [address] [address] REHAB UNIT PLAN OF CARE Name: SAGAR KATZ Room #: 509-P ADM IN M.R.#: [id number] Admission: 04/25/19 ������������������ Attend Phys: Edu Cardoza MD Discharge: ������������������ Date of : [birth year] Report #: [id number] THIS REPORT FOR: //name// CC: Edu Andujar DATE OF SERVICE: 04/28/2019 PROGRESS NOTE AND OVERALL PLAN OF CARE SUBJECTIVE: The patient is seen back today in followup. She was in no distress. Temperature 98.3, pulse 68, respirations 16, blood pressure is 118/63. No focal calf swelling. She has been working in therapies. Transfers are standby assist. Gait standby assist 200 feet without a device. In occupational therapy, lower body dressing is min assist. Speech therapy notes [id number] cognitive deficits with moderate memory deficits. Appreciate Psychiatry involvement with noted diagnosis of dementia. Daughter has been contacted and there has been concern with worsening cognition, unsafe driving, decline in self cares. It was reiterated to the patient's daughter that the patient is no longer to drive and that power of defense attorney issues will likely need to be looked into. ASSESSMENT: 1. Pulmonary rehabilitation. 2. Medical complexity with generalized debilitation. 3. Bilateral pulmonary embolism with hypoxia, on anticoagulation. 4. Hypoxic respiratory failure. 5. Bilateral pulmonary embolism. 6. Left lower extremity deep venous thrombosis. 7. Pulmonary hypertension. 8. Elevated BNP. 9. Renal insufficiency. 10. Diabetes mellitus type 2. 11. Prior history of dementia. 12. Hypertension. PLAN: The overall plan of care is based on the preadmission screen, post-admission physician evaluation and information garnered from therapy assessments. 1. Estimated length of stay is probably at least 5-10 days pending progress. 2. Medical prognosis is reasonably good. 3. Anticipated interventions includes the interdisciplinary acute inpatient rehabilitation program. 4. Anticipated functional outcomes would be for the patient to become modified independent with transfers, mobility and ADLs. 5. Discharge destination will need to be further assessed. The plan originally [address] [address] REHAB UNIT PLAN OF CARE Name: SAGAR KATZ Room #: 509-P [facility] IN ..#: [id number] Admission: 04/25/19 ������������������ Attend Phys: Edu Cardoza MD Discharge: ������������������ Date of : [birth year] Report #: [id number] would be to return back to the home setting, but with the cognitive issues, will likely need to consider increased assistance at home, assisted living, etc. 6. Expected therapy by discipline includes PT, OT and speech 1 hour per day each five days a week throughout the duration of the acute inpatient rehabilitation stay. ��������������������������������������������� <ELECTRONICALLY SIGNED> ���������������������������������������� By: Edu Cardoza MD ��������������������������������������������� 05/04/19 1641 [id number] Edu Cardoza MD /PMT
[2019-05-04 19:24] VITALS: BP 145/57
--- NOTE | 2019-05-05 03:55 | NUR ---
ASSUMED CARE OF PT @1900 PT ASSSESSED @ START OF SHIFT A&OX4, TEJON AND HAS DENUTRES. ON 2L OF O2. EVENING MEDS GIVEN AND PT KIZZY IT WELL. HYDROCORTISONE CREAM APPLIED ON BACK DUE TO RASH. NYSTATIN POWDER APPLIED TO BILATERAL GROIN AREA. UP WITHX1 ASSIT TO THE BATHROOM. FALL PREC IN PLACE AND CALL LIGHT WITHIN REACH WILL CONT WITH POC TILL EOS.
[2019-05-05 07:15] VITALS: BP 119/56
--- NOTE | 2019-05-05 10:19 | NUR ---
rx for home o2 faxed to [facility] [phone], notified [facility] that pt will be staying with her drt amadou in [place] and address on facesheet when faxed over o2 rx. spoke with daughter amadou who stated around 3pm will pick her up. dcp home with [facility]
[2019-05-05] MEDS ORDERED: CIPROFLOXIN HC2.5 M1 OPHTHALMIC (10:31)
[2019-05-05 10:47] VITALS: BP 119/56
--- NOTE | 2019-05-05 11:22 | NUR ---
ASSUMED CARES AT 0700. PT AWAKE, A/O*4, FORGETFUL. DENIES PAIN. VITALS REMAIN STABLE. REDNESS AND IRRITATION NOTED AROUND EYES PATTY, HOSPITALIST NOTIFIED AND ORDERS RECEIVED. EYE DROPS ADMINISTERED. CONTINUES TO HAVE RASH ON LOWER BACK, REDNESS AROUND GROIN PATTY. HYDROCORTISONE CREAM AND NYSTATIN POWDER APPLIED RESPECTIVELY. PT REMAINS ON 2L OXYGEN, PLAN IS TO DC TODAY AFTERNOON WITH 2L HOME O2. PT EDUCATION TO BE COMPLETED WITH PT UPON DISCHARGE. Q1H VISUAL CHECKS. CALL LIGHT WITHIN REACH. FALL PRECAUTIONS IN PLACE
--- NOTE | 2019-05-07 11:54 | HC ---
[facility] [place] [address] CONSULTATION Name: SAGAR KATZ Room #: 509-P [facility] IN M.R.#: [id number] Admission: 04/25/19 ������������������ Attend Phys: Edu Cardoza MD Discharge: 05/05/19 ������������������ Date of : [birth year] Report #: [id number] THIS REPORT FOR: //name// CC: Edu Andujar DATE OF SERVICE: 04/29/2019 BEHAVIORAL STATUS EXAM CLINICAL PRESENTATION: The patient is an 89-year-old female admitted to the rehabilitation unit at [facility] for a comprehensive inpatient rehabilitation program to improve functional mobility, activities of daily living and self-care and mental status secondary to deficits from medical complexity and generalized debility. She has been undergoing pulmonary rehabilitation. The patient was admitted with bilateral pulmonary embolism with hypoxia and is on anticoagulation. Her assessment includes hypoxic respiratory failure, bilateral pulmonary embolism, left lower extremity deep venous thrombosis, pulmonary hypertension, elevated BNP, renal insufficiency, prior diabetes mellitus type 2, history of dementia and hypertension. A complete description of her medical condition and history can be found in her medical record. Neuropsychological consultation was requested to provide assistance in the assessment of cognitive and emotional status and to provide recommendations and services. Prior to this most recent admission, she is reported to have been living independently in her own home. The patient was driving and managing her own medication. She reports having been independent with instrumental activities of daily living. The patient was seen for an outpatient neuropsychological assessment about 3 years ago. She is a high school graduate. She has one daughter. 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 Her approximately 1998. TECHNIQUES UTILIZED: Clinical interview, review of medical records, staff consultation and behavioral observation, mini mental status exam 2 standard version, clock drawing and verbal fluency assessment (letter and category and family consultation - daughter). EXAMINATION FINDINGS: The patient was alert and cooperative with the assessment. She accurately described aspects of the reason for her hospitalization. She does not report symptoms of anxiety or depression. However, her mood appears somewhat irritable. She indicates sleep has been poor. Memory is described as diminished. She does not report difficulty with appetite, energy level, anxiety/depression or word finding. She also does not [facility] [address] [place] [address] CONSULTATION Name: SAGAR KATZ Room #: 509-P [facility] IN M.R.#: [id number] Admission: 04/25/19 ������������������ Attend Phys: Edu Cardoza MD Discharge: 05/05/19 ������������������ Date of : [birth year] Report #: [id number] indicate falls or having a concussion. Her daughter indicates that her house is in very poor condition. Symptoms described by her daughter includes poor hygiene, grooming and bathing. She has not been cooking. There is moldy food in the refrigerator and her house is not kept clean. She moved from [place] to [place] to be closer to her daughter. Problems with managing her home in [place] led to her daughter moving her to [facility] for increased help. She was recently stopped for speeding and swerving while driving prior to her admission. Performance on the MMSE 2 brief version was 12/16 with a T score of 31, which is at the 3rd percentile. She was 3/3 for initial registration, 4/5 for orientation to time, 5/[address] and 0/3 for immediate recall of 3 items after a brief time delay and distraction. Her performance on the standard version of the MMSE 2 was 25/30, which is a T score of 44 and percentile rank of 27, which is average. She was 4/5 for serial sevens, 2/2 for naming, 1/1 for repetition, 3/3 for comprehension. She could read and follow a single command, write a sentence and copy a simple geometric design. Performance on verbal fluency assessment was extremely low. Letter fluency was a raw score of 8, T score 22 and percentile rank of less than 1. Category fluency was a raw score of 15, T score of 27 and percentile rank of 1. Overall, total fluency was a raw score of 23, T score 25 and a percentile rank of 1, which is extremely low. Deficits are noted in immediate recall and verbal fluency. Suggested impairment is executive functioning and immediate memory. Her mood appears depressed, although she denies subjective feelings of depression. DIAGNOSTIC IMPRESSION: Major neurocognitive disorder (dementia), unspecified, with decreased insight. Unspecified depressive disorder. RECOMMENDATIONS: The patient will likely require assistance in the management of medication along with nutrition and finances upon her return home. Her daughter indicated that the patient could move in with her temporarily as they engage in increased problem solving to assist in management of issues regarding living arrangements and management of finances. Consider the use of an antidepressant medication to assist with mood. Following discharge, neuropsychological testing and Neurology consultation is indicated. Additionally, consider the use of medication to support memory. [facility] [address] [place] [address] CONSULTATION Name: SAGAR KATZ Room #: 509-P [facility] IN M.R.#: [id number] Admission: 04/25/19 ������������������ Attend Phys: Edu Cardoza MD Discharge: 05/05/19 ������������������ Date of : [birth year] Report #: [id number] Thank you very much for allowing me to provide the consultation on this patient. ��������������������������������������������� <ELECTRONICALLY SIGNED> ���������������������������������������� By: Kiran Santos, PhD ��������������������������������������������� 05/07/19 [id number] Kiran Santos, PhD /nt
== END 2019-05-05 15:44 | disposition home health service (06) | DRG 175 ==
LOC: ENTRNSPT 05-05 15:28 → EDTRNSPTSTS 05-05 15:34
PROVIDERS: Nurse Practitioner; Nurse Practitioner Acute Care; ADMIT Physical Medicine & Rehabilitation
DX: I26.99 Other pulmonary embolism without acute cor pulmonale (principal); J96.01 Acute respiratory failure with hypoxia; I82.402 Acute embolism and thrombosis of unspecified deep veins of left lower extremity; N17.9 Acute kidney failure, unspecified; R53.81 Other malaise; I27.20 Pulmonary hypertension, unspecified; F32.9 Major depressive disorder, single episode, unspecified; E78.5 Hyperlipidemia, unspecified; Z96.653 Presence of artificial knee joint, bilateral; Z60.2 Problems related to living alone; N18.3 Chronic kidney disease, stage 3 (moderate); F01.50 Vascular dementia, unspecified severity, without behavioral disturbance, psychotic disturbance, mood disturbance, and anxiety; E53.8 Deficiency of other specified B group vitamins; I12.9 Hypertensive chronic kidney disease with stage 1 through stage 4 chronic kidney disease, or unspecified chronic kidney disease; E11.22 Type 2 diabetes mellitus with diabetic chronic kidney disease; Z88.0 Allergy status to penicillin; Z88.6 Allergy status to analgesic agent; Z88.8 Allergy status to other drugs, medicaments and biological substances; Z79.4 Long term (current) use of insulin; Z79.899 Other long term (current) drug therapy; Z79.01 Long term (current) use of anticoagulants; Z88.1 Allergy status to other antibiotic agents; Z82.3 Family history of stroke; Z83.79 Family history of other diseases of the digestive system
CPT/HCPCS: 10112